=== PATIENT | female | born 2000 | race Caucasian/White ===

== ENCOUNTER 2022-11-04 18:00 | Inpatient (IN) | payer OTHER ==
[2022-11-04] MEDS ORDERED: Ibuprofen 800 MG TAB PO PRN (18:58)
[2022-11-04] MEDS ORDERED: Promethazine HCl 25 MG/ML VIAL IM PRN (18:58)
[2022-11-04] MEDS ORDERED: Acetaminophen 500 MG TAB PO PRN (18:58)
[2022-11-04] MEDS ORDERED: Lidocaine 1% (PF) 30 ML VIAL SC PRN (18:58)
[2022-11-04] MEDS ORDERED: Methylergonovine 0.2 MG/ML VIAL IM PRN (18:58)
[2022-11-04] MEDS ORDERED: Misoprostol 200 MCG TAB PR PRN (18:58)
[2022-11-04] MEDS ORDERED: hydrALAZINE 20 MG/ML VIAL SLOW IVP PRN (18:58)
[2022-11-04] MEDS ORDERED: Ondansetron PF 4 MG/2 ML Vial IVP PRN (18:58)
[2022-11-04] MEDS ORDERED: NS w/ Oxytocin 30 units 500 ML IV SCH ×2 (19:00)
[2022-11-04 19:07] VITALS: BMI 51.7
[2022-11-04 20:53] LABS: Hemoglobin 12.6 g/dL (12.0-15.5); Mean Corpuscular HGB CONC 33.6 g/dL (32.0-36.0); Mean Corpuscular Hemoglobin 29.3 pg (27.0-33.0); Mean Corpuscular Volume 87.2 fl (81.6-98.3); Mean Platelet Volume 11.8 fl (7.4-10.4); Platelet Count 326 10x3/uL (150-450); RBC Distribution Width 12.8 % (11.5-14.5); White Blood Cell (WBC) Count 12.2 10x3/uL (3.5-10.5)
[2022-11-04] MEDS: Misoprostol 100 MCG TAB VAG SCH (20:53)
[2022-11-04] MEDS: Lactated Ringer's 1,000 ML IV SCH (20:53)
[2022-11-04] MEDS ORDERED: Calcium Carbonate 500 MG ChewTAB PO SCH (21:15)
[2022-11-04 22:18] LABS: SARS-CoV-2 NAA Rapid Test Not Detected (NotDetected)
[2022-11-04 22:31] LABS: HBSAg Index 0.19 S/CO (0-0.99); Hep B Surf Ag Non-Reactive S/CO (NonReactive)
[2022-11-04 22:32] LABS: Syphilis Antibody Nonreactive (Nonreactive); Syphilis Antibody Index 0.05 S/CO (<1.00 Non-Reactive)
[2022-11-05] MEDS ORDERED: hydrALAZINE 20 MG/ML VIAL SLOW IVP PRN ×3 (00:19→17:31)
[2022-11-05] MEDS ORDERED: Labetalol HCl 100 MG/20 ML VIAL SLOW IVP PRN ×2 (00:19)
[2022-11-05 00:48] LABS: ALT (SGPT) 64 U/L (8-55); AST (SGOT) 27 U/L (5-34); Albumin 3.6 g/dL (3.5-5.0); Alkaline Phosphatase 118 U/L (40-110); Anion Gap 15 mmol/L (10-20); BUN (Urea Nitrogen) 16 mg/dL (7.0-18.7); Bilirubin, Total 0.3 mg/dL (0.2-1.2); Calc. Creatinine Clearance 291 mL/min (70-130); Calcium 9.4 mg/dL (7.8-10.44); Carbon Dioxide 21 mmol/L (22-29); Chloride 105 mmol/L (98-107); Estimated GFR 130; Globulin 3.1 g/dL (2.4-3.5); Glucose 85 mg/dL (70-105); Potassium 4.4 mmol/L (3.5-5.1); Protein, Total 6.7 g/dL (6.0-8.3); Sodium 137 mmol/L (136-145)
[2022-11-05 04:28] LABS: Creatinine, Urine 140.5 mg/dL (47-110)
[2022-11-05] MEDS ORDERED: Fentanyl 2 mcg/Bup 0.1% Cadd 100 ML ONE (04:46)
[2022-11-05] MEDS ORDERED: ePHEDrine Sulfate 50 MG/10 ML VIAL SLOW IVP PRN (05:33)
[2022-11-05] MEDS ORDERED: Lactated Ringer's 500 ML IV PRN (05:33)
[2022-11-05] MEDS ORDERED: diphenhydrAMINE 50 MG/ML VIAL IVP PRN (05:33)
[2022-11-05] MEDS ORDERED: Acetaminophen 325 MG TAB PO PRN (05:33)
[2022-11-05] MEDS ORDERED: Naloxone HCl 0.4 mg/ml Vial IVP PRN ×2 (05:33)
[2022-11-05] MEDS ORDERED: Moisturizing Cream (Eucerin) 113 GM JAR TOP PRN (05:33)
[2022-11-05] MEDS ORDERED: Ondansetron PF 4 MG/2 ML Vial IVP PRN ×2 (05:33→17:31)
[2022-11-05] MEDS ORDERED: Promethazine HCl 25 MG/ML VIAL IM PRN ×2 (05:33→17:31)
[2022-11-05] MEDS ORDERED: Fentanyl 2 mcg/Bupivacaine 0.1% Cassette 100 ML EPIDURAL SCH (05:45)
[2022-11-05] MEDS ORDERED: Communication Order-Pharmacy FS SCH (05:45)
[2022-11-05] MEDS ORDERED: Fentanyl 100 MCG/2 ML VIAL ONE (11:21)
[2022-11-05] MEDS ORDERED: Bisacodyl 10 MG SUPP PR PRN (17:31)
[2022-11-05] MEDS ORDERED: Preparation H Ointment 28 GM TUBE PR PRN (17:31)
[2022-11-05] MEDS ORDERED: Milk Of Magnesia 30 ML UDCUP PO PRN (17:31)
[2022-11-05] MEDS ORDERED: Lanolin Ointment 7 GM TUBE TOP PRN (17:31)
[2022-11-05] MEDS ORDERED: Boostrix 0.5 ML (Tdap) VIAL (>/=7 yrs of age) IM ONE (17:31)
[2022-11-05] MEDS ORDERED: diphenhydrAMINE 25 MG CAP PO PRN (17:31)
[2022-11-05] MEDS ORDERED: Misoprostol 200 MCG TAB VAG PRN (17:31)
[2022-11-05] MEDS ORDERED: NS w/ Oxytocin 30 units 500 ML IV SCH (17:31)
[2022-11-05] MEDS: Ibuprofen 800 MG TAB PO SCH (21:49)
[2022-11-05] MEDS: Docusate 100 MG CAP PO SCH (21:50)
[2022-11-06] MEDS: Ibuprofen 800 MG TAB PO SCH ×3 (05:03→21:24)
[2022-11-06] MEDS: Ferrous Sulfate 325 MG TAB PO SCH ×2 (08:16→15:45)
[2022-11-06] MEDS: Misoprostol 100 MCG TAB VAG SCH ×2 (08:16→08:17)
[2022-11-06] MEDS: Lactated Ringer's 1,000 ML IV SCH ×2 (08:17→08:18)
[2022-11-06] MEDS: Prenatal Vitamin 1 TAB PO SCH (08:52)
[2022-11-06] MEDS: Docusate 100 MG CAP PO SCH ×2 (08:52→21:24)
[2022-11-06] MEDS: Benzocaine-Menthol 82.5 ML CAN TOP PRN (13:43)
[2022-11-07] MEDS: Ibuprofen 800 MG TAB PO SCH ×2 (05:57→13:54)
[2022-11-07 07:33] VITALS: BP 132/68; TEMP 98.1
[2022-11-07] MEDS: Benzocaine-Menthol 82.5 ML CAN TOP PRN (07:56)
[2022-11-07] MEDS: Docusate 100 MG CAP PO SCH (07:56)
[2022-11-07] MEDS: Ferrous Sulfate 325 MG TAB PO SCH ×2 (07:56→16:38)
[2022-11-07] MEDS: Prenatal Vitamin 1 TAB PO SCH (07:56)
== END 2022-11-07 17:20 | disposition home or self-care (01) | DRG 807 ==
LOC: CSHLD 18:08 → CSHPP 11-05 17:55
PROVIDERS: ADMIT Student in an Organized Health Care Education/Training Program; ATTEND Student in an Organized Health Care Education/Training Program
PROC: 10E0XZZ Delivery of Products of Conception, External Approach (ICD-10-PCS; principal; 2022-11-05)
PROC: 0UQMXZZ Repair Vulva, External Approach (ICD-10-PCS; 2022-11-05)
PROC: 10907ZC Drainage of Amniotic Fluid, Therapeutic from Products of Conception, Via Natural or Artificial Opening (ICD-10-PCS; 2022-11-05)
PROC: 3E033VJ Introduction of Other Hormone into Peripheral Vein, Percutaneous Approach (ICD-10-PCS; 2022-11-05)
DX: O36.5930 Maternal care for other known or suspected poor fetal growth, third trimester, not applicable or unspecified (principal); Z37.0 Single live birth; E66.9 Obesity, unspecified; O99.214 Obesity complicating childbirth; J45.909 Unspecified asthma, uncomplicated; O99.52 Diseases of the respiratory system complicating childbirth; Z20.822 Contact with and (suspected) exposure to COVID-19; O13.4 Gestational [pregnancy-induced] hypertension without significant proteinuria, complicating childbirth; O71.82 Other specified trauma to perineum and vulva; O69.81X0 Labor and delivery complicated by cord around neck, without compression, not applicable or unspecified; Z3A.38 38 weeks gestation of pregnancy; Z79.51 Long term (current) use of inhaled steroids; Z88.2 Allergy status to sulfonamides; Z90.89 Acquired absence of other organs; Z79.82 Long term (current) use of aspirin
CPT/HCPCS: 36415; 51702; 80053; 82570; 84156; 85027; 86780; 86850; 86900; 86901; 87340; J2590; J7120; U0002